=== PATIENT | male | born 1955 | race Caucasian/White ===

== ENCOUNTER 2017-10-04 17:20 | Inpatient (IN) | payer BC ==
[2017-10-04] VITALS (11 sets, daily range): BP systolic 121–155; BP diastolic 73–112
[~2017-10-04] VITALS: Ht 167.6 cm; Wt 88.0 kg
[2017-10-04 17:39] LABS: ABSOLUTE BASOPHILS 0.1 thou/uL (0.0-0.2); ABSOLUTE EOSINOPHILS 0.1 thou/uL (0.0-0.7); ABSOLUTE LYMPHOCYTES 5.1 thou/uL (0.8-5.3); ABSOLUTE MONOCYTES 0.8 thou/uL (0.0-1.2); ABSOLUTE NEUTROPHILS 5.1 thou/uL (1.6-8.1); BASOPHILS 0.8 %; EOSINOPHILS 0.8 %; HEMATOCRIT 46.4 % (42.0-52.0); HEMOGLOBIN 15.8 gm/dL (14.0-18.0); MCH 30.8 pg (26.0-34.0); MCHC 34.1 g/dL (28.0-37.0); MCV 90.1 fL (80.0-100.0); MONOCYTES 6.8 %; NUCLEATED RBCS 0 /100WBC; PLATELET COUNT* 234 thou/uL (150-400); POLYS 45.6 %; RBC 5.15 mil/uL (4.50-6.00); RDW-CV 13.2 % (10.5-14.5); WBC 11.1 thou/uL (4.0-11.0)
[2017-10-04] MEDS ORDERED: LIPITOR 20 MG T20 M1 PO (17:41)
[2017-10-04] MEDS ORDERED: ATENOLOL 50MG T50 M1 PO (17:41)
[2017-10-04 17:48] LABS: CALCIUM 8.7 mg/dL (8.5-10.1); CREATININE 1.4 mg/dL (0.6-1.3); POTASSIUM 4.2 mmol/L (3.5-5.1)
[2017-10-04 17:49] LABS: APTT 20.3 Seconds (25.0-31.3)
[2017-10-04 18:02] LABS: ALBUMIN 4.1 g/dL (3.4-5.0); TOTAL BILIRUBIN 0.3 mg/dL (<0.1-1.0); TOTAL PROTEIN 7.7 g/dL (6.4-8.2); TROPONIN-I LEVEL 0.17 ng/mL (<0.06)
--- NOTE | 2017-10-04 18:13 | NUR ---
cathodic protection technician arrive at 1753, taken to cathodic protection technician at 1756, arrrived cathodic protection technician 175. STEMI CALLED-SEE STEMI PAPERWORK FOR FURTHER DOCUMENTATION
--- NOTE | 2017-10-04 19:19 | CARD ---
[address] [address] CARDIAC CATH REPORT Name: GAGE GALICIA Juvenal Room: [address] IN [facility]#: [id number] Admission: 10/04/17 Attend Phys: Ishmael Li MD Discharge: Date of : 57 Report #: [id number] THIS REPORT FOR: //name// APPROVED REPORT Study performed: 10/04/2017 17:34:07 Patient Details Patient Status: ED Room #: The patient is a 61 year-old male Event Personnel Rosalia Jessica Monitor, Bettye Medina RN RN, Sergey Daniels Desk Maker, Anat Klein Scrub Procedures Performed Art Access - R femoral artery* Left Heart Cath w/LT VGram [id number] LHCLV ALVARO Place w/wo Plasty Single LAD [id number] , Aortogram Indication Abnormal ECG, STEMI (>0 to less than or equal to 6 hours), Chest pain Risk Factors Hypercholesterolemia, Coronary Artery DiseaseHypertension Previous Procedures/Diagnoses Previous PCI Procedure Narrative The patient was brought emergently to the Cardiac Catheterization Laboratory and was prepped and draped in a sterile manner. The right femoral was infiltrated with 2% Lidocaine subcutaneous anesthesia. A 6fr Ultimum Sheath sheath was inserted into the right femoral artery. Coronary angiography was performed using coronary diagnostic catheters. The right coronary system was accessed and visualized with a Diagnostic catheter. The left coronary system was accessed and visualized with a Diagnostic catheter. The left ventricle was accessed and visualized with a Diagnostic catheter. The patient tolerated the procedure well and there were no complications associated with the procedure. Sheath sutured into place. Intra[place] [address] CARDIAC CATH REPORT Name: GALICIAGAGE Room: [address] IN [facility]#: [id number] Admission: 10/04/17 Attend Phys: Ishmael Li MD Discharge: Date of : 57 Report #: [id number] No sedation used. Fluoro Time: 11.7 minutes Dose: 1937 mGy Contrast Type and Amount: Visipaque 250 ml Coronary Angiography The patient's coronary anatomy is co- dominant. Diagnostic Cath Left Main Large-caliber vessel, with no flow-limiting lesions. LAD There is a stent in the proximal segment, with a severe stenosis at the proximal edge of the stent, 99% with SHASHANK 2 blood flow. The distal segment of the LAD is a small to moderate size caliber vessel with moderately severe diffuse disease. Diagonal 1 A small-caliber vessel with a high takeoff from the proximal LAD. There is a severe occlusion at the ostium, 90%. Circumflex Moderate to large caliber vessel, codominant. There is a severe occlusion in the proximal segment, 70%. OM1 Moderate size caliber vessel, patent with no flow-limiting lesions. Right Coronary Small to moderate size caliber vessel, with a severe occlusion in the proximal segment, 90%. R PDA Small-caliber vessel, with no flow-limiting lesions. Left Ventriculography The left ventricle is normal in size with decreased contractility. The left ventricular ejection fraction is estimated to be 40%. Left ventricular wall motion abnormalities are present. There is hypokinesis of the mid to apical anterior wall. Hemodynamics The aortic pressure is 138/76 mmHg with a mean of 97 mmHg. The left ventricular pressure is 125/11 mmHg with a mean of mmHg. The left ventricular end diastolic pressure is 28 mmHg. There was no gradient across the aortic valve upon pullback. PCI Technique Lesion Anticoagulation was achieved with Angiomax. Patient was preloaded with Ticagrelor PO 180 mg. Percutaneous coronary intervention was performed on the proximal left anterior descending artery segment. The lesion stenosis prior to intervention was 99% with SHASHANK 2 flow. A 6FR JL 4.0 Guide Catheter was used to engage the ostium. A CATH AMPLATZ .035 145CM ULTRA Interventional Guidewire [place] [address] CARDIAC CATH REPORT Name: GAGE GALICIA Room: [address] IN [facility]#: [id number] Admission: 10/04/17 Attend Phys: Ishmael Li MD Discharge: Date of : 57 Report #: [id number] the lesion. BALLOON DILATION A Balloon catheter Trek RX 2.5 X 12 was inserted and inflated up to 12.00atm for 14seconds. Additional Inflation: 12.00atm for 12seconds. STENT DEPLOYMENT A drug-eluting stent Xience Alpine RX 3.0X18 was inserted and inflated up to 12.00atm for 37seconds. POST STENT DEPLOYMENT BALLOON DILATION A Balloon catheter NC Trek RX 3.0 X 12 was inserted and inflated up to 18.00atm for 15seconds. Additional Inflation: 18.00atm for 21seconds. Final angiography reveals 5 % stenosis with SHASHANK 3 flow. Conclusion 1. Successful insertion of a drug-eluting stent into the proximal LAD stenosis, with congregational of SHASHANK-3 blood flow. 2. Codominant system, with severe disease in the proximal left circumflex and RCA. Consider staged angioplasty procedure. 3. Severe disease in a small size caliber first diagonal artery. Recommend medical therapy. 4. Moderate segmental LV dysfunction, EF of 40%. 5. Recommend dual antiplatelet therapy and aggressive risk factor management. Medications Administered Ticagrelor <ELECTRONICALLY SIGNED> By: Sergey Daniels MD 10/04/171918 18 18Sergey Daniels MD /INF
--- NOTE | 2017-10-04 21:59 | NUR ---
PT ADMITTED TO ICU ROOM #1 AT 1929. PT RECIEVED STENT X1 TO LAD IN REPRESENTATIVE GOVERNMENT RELATIONS. SHEATH TO RIGHT GROIN REMOVED AT 2099. PRESSURE HELD UNTIL 2129, HEMOSTASIS ACHEIVED AT THAT TIME. PT INSTRUCTED TO LAY FLAT NAD CALL IF BLEEDING OR SWELLING OCCUR AT SITE. PT INSTRUCTED TO SPLINT GROIN IF COUGHING OR BEARING DOWN. CALL LIGHT IN REACH, PT DEMONSTRATES PROPER USE.
[2017-10-05] VITALS (15 sets, daily range): BP systolic 91–139; BP diastolic 60–88
[2017-10-05 04:51] LABS: HEMATOCRIT 43.5 % (42.0-52.0); HEMOGLOBIN 15.1 gm/dL (14.0-18.0); MCH 30.7 pg (26.0-34.0); MCHC 34.7 g/dL (28.0-37.0); MCV 88.6 fL (80.0-100.0); MPV 9.9 fl. (7.2-11.1); RBC 4.91 mil/uL (4.50-6.00); RDW-CV 13.2 % (10.5-14.5); WBC 11.1 thou/uL (4.0-11.0)
[2017-10-05 05:03] LABS: ALBUMIN 3.7 g/dL (3.4-5.0); ALKALINE PHOSPHATASE 87 U/L (46-116); ANION GAP 7 mmol/L (7-16); BUN 20 mg/dL (7-18); CALCIUM 8.6 mg/dL (8.5-10.1); CHLORIDE 106 mmol/L (98-107); CHOLESTEROL 181 mg/dL (<200); CO2 29 mmol/L (21-32); CREATININE 1.2 mg/dL (0.6-1.3); GLUCOSE 109 mg/dL (70-99); HDL CHOLESTEROL 35 mg/dL (>40); LDL CHOLESTEROL 107 mg/dL (<100); POTASSIUM 4.8 mmol/L (3.5-5.1); SGOT 316 U/L (15-37); SGPT 66 U/L (30-65); SODIUM 142 mmol/L (136-145); TC:HDL 5.2 Ratio (Not establshd); TOTAL BILIRUBIN 0.8 mg/dL (<0.1-1.0); TOTAL PROTEIN 6.5 g/dL (6.4-8.2); TRIGLYCERIDE 195 mg/dL (<150); VLDL 39 mg/dL (<40)
[2017-10-05 05:07] LABS: SERUM ASSESSMENT Clear
[2017-10-05 06:33] LABS: TROPONIN-I LEVEL 71.31 ng/mL (<0.06)
[2017-10-05 13:40] LABS: CALCIUM 8.4 mg/dL (8.5-10.1); CREATININE 1.1 mg/dL (0.6-1.3)
[2017-10-05 13:42] LABS: POTASSIUM 3.6 mmol/L (3.5-5.1)
[2017-10-05 13:58] LABS: TROPONIN-I LEVEL 62.56 ng/mL (<0.06)
--- NOTE | 2017-10-05 15:23 | EKG ---
[place] [address] ELECTROCARDIOGRAM REPORT Name: GAGE GALICIA Room: [address] ADM IN M.R.#: [id number] Admission: 10/04/17 Attend Phys: Ishmael Li MD Discharge: Date of : 57 Report #: [id number] THIS REPORT FOR: //name// [facility] ED Test Date: 2017-10-04 Test Time: 17:25:11 Pat Name: GAGE GALICIA Department: Room: [facility] Gender: M Assistant Professor Of Psychology: Halley VINSON : 1955 Requested By: Clara Grewal Order Number: [id number] MD: Israel Yeung Measurements Intervals [place] Rate: 61 P: 62 NM: 158 QRS: 4 QRSD: 90 T: 59 QT: 404 QTc: 407 Interpretive Statements Sinus rhythm Anterior infarct, acute (LAD) Inferior infarct age indeterminate Baseline wander in lead(s) V4 Compared to ECG 08/19/2008 07:48:16 Myocardial infarct finding now present ST (T wave) deviation now present Sinus bradycardia no longer present Electronically Signed On 10-05-2017 15:22:54 CDT by Israel Yeung [email or web address] <ELECTRONICALLY SIGNED> By: Israel Yeung MD, FACC 10/05/17 1522 1725 1725 Israel Yeung MD, FACC /EPI
--- NOTE | 2017-10-05 15:24 | EKG ---
[place] [address] ELECTROCARDIOGRAM REPORT Name: GAGE GALICIA Room: [address] ADM IN M.R.#: [id number] Admission: 10/04/17 Attend Phys: Ishmael Li MD Discharge: Date of : 57 Report #: [id number] THIS REPORT FOR: //name// [facility] Test Date: 2017-10-04 Test Time: 20:10:05 Pat Name: GAGE GALICIA Department: Room: [address] Gender: M Orientation And Mobility Specialist: MARIE SUN RN : 1955 Requested By: Ishmael Li Order Number: [id number] Pee MD: Israel Yeung Measurements Intervals [place] Rate: 73 P: 60 SD: 166 QRS: 10 QRSD: 95 T: 35 QT: 392 QTc: 432 Interpretive Statements Sinus rhythm Anterolateral infarct, acute (LAD) Minimal ST elevation, inferior leads Compared to ECG 08/19/2008 07:48:16 Myocardial infarct finding now present ST (T wave) deviation now present Sinus bradycardia no longer present Electronically Signed On 10-05-2017 15:23:45 CDT by Israel Yeung [email or web address] <ELECTRONICALLY SIGNED> By: Israel Yeung MD, FACC 10/05/17 1523 09 09 Israel Yeung MD, FACC /EPI
--- NOTE | 2017-10-05 15:26 | EKG ---
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: : 1955 Requested By: Sergey Daniels Order Number: [id number] Reading MD: Israel Yeung Measurements Intervals [place] Rate: 61 P: 50 [place]: 156 QRS: 13 QRSD: 97 T: 57 QT: 413 QTc: 416 Interpretive Statements Sinus rhythm Probable anteroseptal infarct, recent Lateral leads are also involved Compared to ECG 08/19/2008 07:48:16 Myocardial infarct finding now present Sinus bradycardia no longer present Electronically Signed On 10-05-2017 15:26:07 CDT by Israel Yeung [email or web address] <ELECTRONICALLY SIGNED> By: Israel Yeung MD, FACC 10/05/17 1526 0754 0754 Israel Yeung MD, [facility] /EPI
--- NOTE | 2017-10-05 16:50 | CON ---
[address] [address] CONSULTATION Name: GALICIAGAGE L Room: [address] IN .R.#: [id number] Admission: 10/04/17 Attend Phys: Ishmael Li MD Discharge: Date of : 57 Report #: [id number] THIS REPORT FOR: //name// CC: Ishmael Murillo DATE OF SERVICE: 10/04/2017 CARDIOLOGY CONSULTATION INDICATION: Chest pain. HISTORY OF PRESENT ILLNESS: This is a 61-year-old gentleman presenting with acute onset of chest discomfort. About an hour prior to presentation to the ER, he reported developing severe discomfort on both sides of his chest, radiating down both arms. He felt some diaphoresis, denies any fever or dyspnea. He had similar symptoms over the weekend, resolved within a short period of time. There is no history of cough, nausea or diarrhea. He has a prior history of CAD with stent placement in 2008. PAST MEDICAL HISTORY: Stent to the LAD in 2008. He has not followed up with the Cardiology since then. Recently followed with a primary care physician for medications. History of hypertension, history of hypercholesterolemia. ALLERGIES: None. MEDICATIONS: Atenolol daily, Lipitor daily, aspirin 2 times a week. SOCIAL HISTORY: Denies tobacco use. FAMILY HISTORY: Negative for premature CAD. REVIEW OF SYSTEMS: A full 10-point review of systems performed. Only the pertinent positives and negatives are described in the HPI. PHYSICAL EXAMINATION: VITAL SIGNS: Blood pressure is 140/70, heart rate is 70 beats per minute. GENERAL APPEARANCE: A well-developed, well-nourished male in mild distress. HEAD AND EYES: Normocephalic. Sclerae are anicteric. ENT: Oral mucosa moist. NECK: Supple. LUNGS: Clear to auscultation. CARDIAC: Regular rate and rhythm, S1, S2 positive. ABDOMEN: Soft, nontender. EXTREMITIES: No cyanosis, no edema. NEUROLOGIC: Alert and [place] x 3. [place] [address] CONSULTATION Name: GAGE GALICIA Room: [address] IN [facility].#: [id number] Admission: 10/04/17 Attend Phys: Ishmael Li MD Discharge: Date of : 57 Report #: [id number] LABORATORY VALUES: Pending. IMAGING: ECG reveals sinus rhythm with ST elevation in leads V2 to V5. ASSESSMENT AND PLAN: 1. Acute anterior wall myocardial infarction. The patient was treated with aspirin and heparin in the Emergency Room. He will be taken emergently to the cardiac cathead operator. The patient understands and is agreeable. 2. Hypertension, continue beta [place]. 3. Hypercholesterolemia, start high dose atorvastatin. <ELECTRONICALLY SIGNED> By: Sergey Daniels MD 10/05/17 1650 1907 22Sergey Daniels MD /argelia
--- NOTE | 2017-10-05 17:56 | NUR ---
PT WITH NO C/O THROUGH DAY. HRR, SR.
[2017-10-06] VITALS (19 sets, daily range): BP systolic 106–140; BP diastolic 54–103
--- NOTE | 2017-10-06 05:00 | NUR ---
PATIENT PROGRESSING TOWARDS GOALS. NO ACUTE HEMODYNAMIC CHANGES OVER NIGHT. PATIENT WAS ABLE TO SLEEP DURING THE NIGHT. AFEBRILE. PT IS NPO SCHEDULED TO BACK TO AVIONICS TECHNICIAN TODAY. CONSENT SIGNED. PATIENT VOICED UNDERSTANDING OF TREATMENT PLAN. NO OTHER CONCERNS AT THIS TIME. WILL CONTINUE TO MONITOR CLOSELY. CALL LIGHT WITHIN PLACE. BED TO LOWEST POSITION.
--- NOTE | 2017-10-06 08:10 | NUR ---
PT SITTING UP IN CHAIR. NO C/O. TELE SR, HRR.
--- NOTE | 2017-10-06 10:52 | NUR ---
SPOKE WITH PT. HE SAID HE LIVES WITH HIS . SHE CAN HELP HIM AT HOME IF NEEDED. HE DOESN'T FEEL HE WILL HAVE ANY DISCHARGE NEEDS. HE WORKS, DOES NOT USE DME. 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 NO DPOA BUT INFORMATION GIVEN.
--- NOTE | 2017-10-06 16:08 | NUR ---
PT ARRIVED FROM COLLECTION ANALYST, DENIES PAIN. HRR, SR. R GROIN CATH SITE, SMALL AMOUNT OF BLOOD ON DRESSING, DRESSING REMAINS INTACT, SITE SOFT, NO BRUISING NOTED.
--- NOTE | 2017-10-06 16:44 | EKG ---
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: 28 : 1955 Requested By: Alli Sow Order Number: [id number] Reading MD: Alli Sow Measurements Intervals [place] Rate: 78 P: 47 [place]: 158 QRS: -7 QRSD: 89 T: 68 QT: 386 QTc: 440 Interpretive Statements Sinus rhythm Anteroseptal infarct, age indeterminate Lateral leads are also involved Compared to ECG 10/05/2017 07:54:15 No significant changes Electronically Signed On 10-06-2017 16:44:21 CDT by Alli Sow [email or web address] <ELECTRONICALLY SIGNED> By: Alli Sow MD, [facility] 10/06/17 1644 1512 1512 Alli Sow MD, [facility] /EPI
--- NOTE | 2017-10-06 18:24 | NUR ---
PT APPEARS COMFORTABLE, RESTING WITH EYES CLOSED. NO CHANGE IN DRESSING SINCE ARRIVAL. PT TOLERATED DIET WITHOUT COMPLAINT. PT ABLE TO MAKE NEEDS KNOWN, CALL LIGHT IN REACH
[2017-10-07] VITALS (8 sets, daily range): BP systolic 108–131; BP diastolic 53–85
[2017-10-07 04:16] LABS: HEMATOCRIT 42.4 % (42.0-52.0); HEMOGLOBIN 14.6 gm/dL (14.0-18.0); MCH 30.8 pg (26.0-34.0); MCHC 34.4 g/dL (28.0-37.0); MCV 89.6 fL (80.0-100.0); MPV 9.5 fl. (7.2-11.1); RBC 4.72 mil/uL (4.50-6.00); WBC 12.3 thou/uL (4.0-11.0)
--- NOTE | 2017-10-07 04:27 | NUR ---
PROGRESSION TOWARDS GOALS. ASSESSMENT AND VS OBTAINED, SEE CHARTING. BUTTONER ON AND TRACING SR. PT HAD PAIN IN HIS R GROIN AND RECIEVED PAIN MEDS. PT HAD TWO BM THAT WERE DIARRHEA. PT SLEPT ALL NIGHT WITHOUT ANY PROBLEMS
[2017-10-07 04:57] LABS: ALBUMIN 3.4 g/dL (3.4-5.0); CALCIUM 8.3 mg/dL (8.5-10.1); POTASSIUM 3.6 mmol/L (3.5-5.1); TOTAL BILIRUBIN 0.8 mg/dL (<0.1-1.0); TOTAL PROTEIN 6.3 g/dL (6.4-8.2)
[2017-10-07 04:59] LABS: TROPONIN-I LEVEL 19.51 ng/mL (<0.06)
[2017-10-07] MEDS ORDERED: TOPROL XL25 MG PO (07:20)
[2017-10-07] MEDS ORDERED: BRILINTA90 MG PO (07:20)
[2017-10-07] MEDS ORDERED: COZAAR 25 MG TA25 M1 PO (07:20)
[2017-10-07] MEDS ORDERED: ATORVASTATIN CA80 MG PO (07:20)
[2017-10-07] MEDS ORDERED: ASPIR 8181 MG PO (09:06)
[2017-10-07] MEDS ORDERED: NITROGLYCERIN0.4 MG SUBLING (09:09)
[2017-10-07] MEDS ORDERED: COREG6.25 MG PO (10:20)
--- NOTE | 2017-10-07 11:33 | NUR ---
ICU ROUNDING: CM SPOKE TO THE RN IN-CHARGE OF THE PATIENT TO DISCUSS PATIENTS STATUS. RN IN-CHARGE OF PATIENT INFORMS THAT THE PATIENT IS DOING WELL AND WILL DICHARGE HOME TODAY. CM WILL REMAIN AVAILABLE TO ASSIST AND FOLLOW NEEDED.
--- NOTE | 2017-10-07 11:57 | NUR ---
PT GIVEN DISCHARGE INSTRUCTIONS AT THIS TIME. PT AND FAMILY REPORT UNDERSTANDING. PT GIVEN SIX PRESCRIPTIONS. PT DISCHARGED WITH ALL BELONGINGS. DC'D PER W/C WITH NURSING STAFF WITH TO PRIVATE VEHICLE. PT HAS NO OTHER CONCERNS AT THIS TIME.
--- NOTE | 2017-10-07 16:02 | EKG ---
[place] [address] ELECTROCARDIOGRAM REPORT Name: GAGE GALICIA Room: [address] IN M.R.#: [id number] Admission: 10/04/17 Attend Phys: Ishmael Li MD Discharge: 10/07/17 Date of : 57 Report #: [id number] THIS REPORT FOR: //name// [facility] Test Date: 2017-10-07 Test Time: 08:42:01 Pat Name: GAGE GALICIA Department: Room: [address] Gender: M [place] Man: : 1955 Requested By: Alli Sow Order Number: [id number] Pee MD: Alli Sow Measurements Intervals [place] Rate: 93 P: 47 [place]: 156 QRS: 27 QRSD: 92 T: 77 QT: 346 QTc: 431 Interpretive Statements Sinus rhythm Probable anterolateral infarct, recent Compared to ECG 10/06/2017 15:12:15 No significant changes Electronically Signed On 10-07-2017 16:01:54 CDT by Alli Sow [email or web address] <ELECTRONICALLY SIGNED> By: Alli Sow MD, [facility] 10/07/17 1601 0842 0842 Alli Sow MD, [facility] /EPI
--- NOTE | 2017-10-09 11:58 | CARD ---
[address] [address] CARDIAC CATH REPORT Name: GAGE GALICIA Room: [address] IN [facility]#: [id number] Admission: 10/04/17 Attend Phys: Ishmael Li MD Discharge: 10/07/17 Date of : 57 Report #: [id number] THIS REPORT FOR: //name// APPROVED REPORT Study performed: 10/06/2017 12:44:12 Patient Details Patient Status: In-Patient Room #: 001 The patient is a 61 year-old male Event Personnel Alli Sow Sanitation Manager, Genevieve Brennan RN Program Review Director, Anat Klein Monitor, Rosanne Buchanan RTR Scrub Procedures Performed Art Access - R femoral artery* , Selective Right and Left Coronary Angiography, Left catheterization with selective coronary artery, PTCA with Stenting of the proximal circumflex proximal right coronary artery and mid LAD Indication Unstable angina Risk Factors Hypercholesterolemia, Hypertension Previous Procedures/Diagnoses Previous PCI, Previous ID Admission/Lab Medications/Medications given during procedure Aspirin, Glycoprotein IllbIlla Inhibitors, Angiomax bolus and infusion Procedure Narrative The patient was brought electively to the Cardiac Catheterization Laboratory and was prepped and draped in a sterile manner. The right femoral was infiltrated with 1% Lidocaine subcutaneous anesthesia. A [place] 6 FR sheath was inserted into the right femoral artery. Coronary angiography was performed using coronary diagnostic catheters. The right coronary system was accessed and visualized with a Diagnostic 6fr JR 4 catheter. The left coronary system was accessed and visualized with a Diagnostic 6FR JL 4 catheter. The left ventricle was accessed and visualized with a Diagnostic pigtail catheter. Left ventricular/Aortic [place] [address] CARDIAC CATH REPORT Name: GAGE GALICIA Room: [address]#: [id number] Admission: 10/04/17 Attend Phys: Ishmael Li MD Discharge: 10/07/17 Date of : 57 Report #: [id number] catheter pullback. Pre-demployment femoral angiogram was performed . Closure device was deployed with a 6 Fr Angioseal STS 6Fr. The patient tolerated the procedure well and there were no complications associated with the procedure. There was no hematoma. Intraoperative Conscious Sedation Sedation start time: 13:16 Case end Time: 14:30 Fentanyl 100 mcg Versed 2 mg Fluoro Time: 21.7 minutes Dose: DAP [id number] cGycm2 2460.90 mGy Contrast Type and Amount: Visipaque 200 ml Diagnostic Cath Left Main 0% narrowing LAD Widely patent proximal LAD stent with 90% mid vessel narrowing and 80% apical narrowing Circumflex codominant vessel with 90% proximal stenosis Right Coronary Small codominant vessel with 90% proximal stenosis Left Ventriculography Left Ventriculography was not performed. Hemodynamics The aortic pressure is 125/67 mmHg with a mean of mmHg. The left ventricular pressure is 115/8 mmHg with a mean of mmHg. The left ventricular end diastolic pressure is 13 mmHg. There was no gradient across the aortic valve upon pullback. PCI Technique Lesion Percutaneous coronary intervention was performed on the proximal circumflex artery segment. The lesion stenosis prior to intervention was 90% with SHASHANK 3 flow. A 6F XB LAD 3.5 Guide Catheter was used to engage the LCA ostium. A IG: ProwaterFlex 180CM Interventional Guidewire was used to cross the lesion. BALLOON DILATION A Balloon catheter Trek RX 2.75 X 8 was inserted and inflated up to 14.00atm for 17seconds. STENT DEPLOYMENT A drug-eluting stent Xience Alpine RX 3.0 X 12 was inserted and inflated up to 10.00atm for 11seconds. Additional Inflation: 14.00atm for 12seconds. Additional Inflation: 16.00atm for 13seconds. [place] [address] CARDIAC CATH REPORT Name: GAGE GALICIA Juvenal Room: [address]#: [id number] Admission: 10/04/17 Attend Phys: Ishmael Li MD Discharge: 10/07/17 Date of : 57 Report #: [id number] Final angiography reveals 0 % stenosis with SHASHANK 3 flow. PCI Technique Lesion 2 Percutaneous Coronary Intervention was performed on the proximal right coronary artery. The lesion stenosis prior to intervention was 90% with SHASHANK 3 flow. A 6F JR 4.0 Guide Catheter was used to engage the RCA ostium. A IG: ProwaterFlex 180CM Interventional Guidewire was used to cross the lesion. Balloon Dilation A Balloon catheter Mini Trek RX 1.20X12 was inserted and inflated up to 16.00atm for 15seconds. Additional Inflation: 18.00atm for 12seconds. Stent Deployment A drug-eluting stent Xience Alpine RX 2.25X08 was inserted and inflated up to 12.00atm for 17seconds. Additional Inflation: 17.00atm for 13seconds. Additional Inflation: 18.00atm for 13seconds. 20 LISA X 15 SECONDS Final angiography reveals 10 % stenosis with SHASHANK 3 flow. BALLOON DILATION A Balloon catheter Mini Trek RX 2.0 X 8 was inserted and inflated up to 16atm for 17seconds. Additional Inflation: 20atm for 14seconds. PCI Technique Lesion 3 Percutaneous Coronary Intervention was performed on the mid left anterior descending artery segment. The lesion stenosis prior to intervention was 90% with SHASHANK 3 flow. A 6F XB LAD 3.5 Guide Catheter was used to engage the LCA ostium. A IG: ProwaterFlex 180CM Interventional Guidewire was used to cross the lesion. Balloon Dilation A Balloon catheter Mini Trek RX 2.0 X 8 was inserted and inflated up to 6.00atm for 11seconds. Stent Deployment A drug-eluting stent Xience Alpine RX 2.25X15 was inserted and inflated up to 6.00atm for 11seconds. Additional Inflation: 7.00atm for 6seconds. Additional Inflation: 7.00atm for 10seconds. Final angiography reveals 0 % stenosis with SHASHANK [address] [address] CARDIAC CATH REPORT Name: GAGE GALICIA Room: [address] IN .R.#: [id number] Admission: 10/04/17 Attend Phys: Ishmael Li MD Discharge: 10/07/17 Date of : 57 Report #: [id number] Conclusion 1 significant multivessel coronary artery disease characterized by the following: A widely patent proximal LAD stent with 90% mid vessel narrowing and 80% apical LAD narrowing B 90% stenosis of the proximal portion of the prominent codominant circumflex, C 90% narrowing of the proximal portion of the small codominant right coronary artery #2 normal left-sided hemodynamics study #3 successful percutaneous coronary intervention with deployment of a drug-eluting stent at site of 90% proximal circumflex stenosis with 0% residual narrowing following stent deployment and SHASHANK-3 flow to the distal vessel. #4 successful percutaneous coronary intervention with deployment of drug-eluting stent at site of 90% proximal right coronary stenosis with 10% residual narrowing following stent deployment and SHASHANK-3 flow to the distal vessel #5 successful percutaneous coronary intervention with deployment of a drug-eluting stent at site of 90% mid LAD stenosis with 0% residual following stent deployment and SHASHANK-3 flow to the distal vessel Recommendations Cardiac Risk Reduction Program Aggressive Medical Therapy Medications Administered Aspirin (any) Ticagrelor Diagnostic Cath Approved by: Alli Sow MD Date/Time: 10/09/17 at 1156 hrs. <ELECTRONICALLY SIGNED> By: Alli Sow MD, FACC 10/09/17 1158 1158Alli Sow MD, FACC /INF
== END 2017-10-07 12:05 | disposition home or self-care (01) | DRG 246 ==
LOC: M.ERS 17:20 → M.TBA-CV 18:01 → M.ICU 18:01
PROVIDERS: Internal Medicine; Internal Medicine Cardiovascular Disease; Personal Emergency Response Attendant; ADMIT Internal Medicine
PROC: 4A023N7 Measurement of Cardiac Sampling and Pressure, Left Heart, Percutaneous Approach (ICD-10-PCS; principal; 2017-10-04)
PROC: B2151ZZ Fluoroscopy of Left Heart using Low Osmolar Contrast (ICD-10-PCS; principal; 2017-10-04)
PROC: B2111ZZ Fluoroscopy of Multiple Coronary Arteries using Low Osmolar Contrast (ICD-10-PCS; principal; 2017-10-04)
PROC: 027034Z Dilation of Coronary Artery, One Artery with Drug-eluting Intraluminal Device, Percutaneous Approach (ICD-10-PCS; principal; 2017-10-04)
DX: I21.09 ST elevation (STEMI) myocardial infarction involving other coronary artery of anterior wall (principal); I50.21 Acute systolic (congestive) heart failure; I13.0 Hypertensive heart and chronic kidney disease with heart failure and stage 1 through stage 4 chronic kidney disease, or unspecified chronic kidney disease; I25.5 Ischemic cardiomyopathy; I25.10 Atherosclerotic heart disease of native coronary artery without angina pectoris; N18.2 Chronic kidney disease, stage 2 (mild); E78.00 Pure hypercholesterolemia, unspecified; Z95.5 Presence of coronary angioplasty implant and graft; Z90.49 Acquired absence of other specified parts of digestive tract; Z79.899 Other long term (current) drug therapy

== ENCOUNTER → 2018-09-13 | Outpatient (CLI) | payer BC ==
[~2018-09-13] MED LIST: ASPIR 8181 MG PO; ATENOLOL 50MG T50 M1 PO; ATORVASTATIN CA80 MG PO; BRILINTA90 MG PO; COREG6.25 MG PO; COZAAR 25 MG TA25 M1 PO; LIPITOR 20 MG T20 M1 PO; NITROGLYCERIN0.4 MG SUBLING; TOPROL XL25 MG PO
--- NOTE | 2018-09-13 09:50 | 2DMMODE ---
[place] [address] 2 D/M-MODE ECHOCARDIOGRAM Name: GAGE GALICIA Room: [facility]#: [id number] Admission: 09/13/18 Attend Phys: Israel Yeung, Discharge: Date of : 57 Date of Service: 09/13/18 0949 Report #: [id number] THIS REPORT FOR: //name// APPROVED REPORT Study performed: 09/13/2018 09:02:14 EXAM: Comprehensive 2D, Doppler, and color-flow Echocardiogram Patient Location: Out-Patient BSA: 1.98 HR: 68 bpm BP: 132/80 mmHg Other Information Study Quality: Good Indications CAD 2D Dimensions IVSd: 11.32 (7-11mm) LVOT Diam: 20.90 (18-24mm) LVDd: 37.21 mm PWd: 9.57 (7-11mm) Ascending Ao: 27.69 (22-36mm) LVDs: 24.96 (25-40mm) Aortic Root: 28.88 mm Volumes Left Atrial Volume (Systole) LA ESV Index: 16.30 mL/m2 Aortic Valve AoV Peak Pedro.: 0.93 m/s AO Peak Gr.: 3.45 mmHg LVOT Max P.75 mmHg AO Mean Gr.: 1.92 mmHg LVOT Mean P.40 mmHg LVOT Max V: 0.83 m/s AO V2 VTI: 19.54 cm LVOT Mean V: 0.55 m/s ALYSSA (VTI): 3.34 cm2 LVOT V1 VTI: 19.02 cm Mitral Valve E/A Ratio: 1.27 MV Decel. Time: 165.76 ms MV E Max Pedro.: 0.72 m/s MV PHT: 48.07 ms MVA (PHT): 4.58 [place] [address] 2 D/M-MODE ECHOCARDIOGRAM Name: GAGE GALICIA Room: [facility]#: [id number] Admission: 09/13/18 Attend Phys: Israel Yeung, Discharge: Date of : 57 Date of Service: 09/13/18 0949 Report #: [id number] TDI E/Lateral E': 8.00 E/Medial E': 9.00 Medial E' Pedro.: 0.08 m/s Lateral E' Pedro.: 0.09 m/s Pulmonary Valve PV Peak Pedro.: 0.75 m/s PV Peak Gr.: 2.28 mmHg Tricuspid Valve RAP Estimate: 5.00 mmHg TR Peak Gr.: 22.95 mmHg RVSP: 27.95 mmHg PA Pressure: 27.95 mmHg Left Ventricle The left ventricle is normal size. There is normal LV segmental wall motion. There is normal left ventricular wall thickness. Left ventricular systolic function is normal. LVEF is 55-60%. Transmitral Doppler flow pattern suggests impaired LV relaxation. Right Ventricle The right ventricle is normal size. The right ventricular systolic function is normal. Atria The left atrium size is normal. The right atrium size is normal. Aortic Valve The aortic valve is normal in structure. No aortic regurgitation is present. There is no aortic valvular stenosis. Mitral Valve The mitral valve is normal in structure. Mild mitral regurgitation. No evidence of mitral valve stenosis. Tricuspid Valve The tricuspid valve is normal in structure. Mild tricuspid regurgitation. The RVSP is 30-35 mmHg. Pulmonic Valve The pulmonary valve is normal in structure. There is no pulmonic valvular regurgitation. Great Vessels The aortic root is normal in size. IVC [place] [address] 2 D/M-MODE ECHOCARDIOGRAM Name: GALICIAGAGEMANDIE FREEDMAN [id number] Admission: 09/13/18 Attend Phys: Israel Yeung, Discharge: Date of : 57 Date of Service: 09/13/18 0949 Report #: [id number] collapses >50% with inspiration. Pericardium There is no pericardial effusion. <Conclusion> The left ventricle is normal size. There is normal left ventricular wall thickness. Left ventricular systolic function is normal. LVEF is 55-60%. Transmitral Doppler flow pattern suggests impaired LV relaxation. Mild mitral regurgitation. Mild tricuspid regurgitation. The RVSP is 30-35 mmHg. IVC is normal in size and collapses >50% with inspiration. <ELECTRONICALLY SIGNED> By: Israel Yeung MD, FACC 09/13/18 0949 Israel Yeung MD, FACC /INF
== END ==
LOC: M.CRD 08:41
DX: I08.1 Rheumatic disorders of both mitral and tricuspid valves (principal); I25.10 Atherosclerotic heart disease of native coronary artery without angina pectoris

== ENCOUNTER 2020-03-03 10:35 | Emergency (ER) | payer BC ==
[~2020-03-03] VITALS: Ht 170.2 cm; Wt 86.2 kg
[2020-03-03] MEDS ORDERED: NORCO 5-325 TA1 EAC2 PO (11:59)
[2020-03-03] MEDS ORDERED: FLEXERIL PO (11:59)
[2020-03-03 12:19] VITALS: BP 135/79
== END 2020-03-03 12:20 | disposition home or self-care (01) ==
LOC: M.ERS 10:35
DX: S46.812A Strain of other muscles, fascia and tendons at shoulder and upper arm level, left arm, initial encounter (principal); Z90.49 Acquired absence of other specified parts of digestive tract; V89.9XXA Person injured in unspecified vehicle accident, initial encounter; Y93.89 Activity, other specified; Y92.89 Other specified places as the place of occurrence of the external cause; Y99.8 Other external cause status